=== PATIENT | male | born 1995 | race Caucasian/White ===

== ENCOUNTER → 2016-12-25 | Outpatient (CLI) | payer BC ==
--- OUTSIDE RECORDS SUMMARY | 2016-12-25 11:12 | XMS REPORT | Continuity of Care Document ---
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 Procedure History: . RIGHT RESECTION OF AVULSION FRACTURE WITH ANKLE ARTHROTOMY in 2012 at 17 Years. tubes in ears in 1995 at 18 Months. Social History . Current Tobacco Usage: Current Recreational Drug Use Recreational Drug Use: Denies Tobacco Use Tobacco Type: Cigarettes Cigarette Use Packs/Day: 0.5 pack per day Physical Examination VS/Measurements Vitals (last 3 within 24 hours) Date/Time Temp BP Pulse RR SAO2 FIO2 10/18 08:32 36.2 119/71 70 16 99 Current Weight: 57.3 kg - 10/18/13 08:32 Current Height: 169.5 cm - 10/18/13 08:32 Current BMI: 19.9 - 10/18/13 08:32 General: Alert and oriented, No acute distress. Eye: Pupils are equal, round and reactive to light, Extraocular movements are intact. HENT: Normocephalic, Tympanic membranes are clear, Oral mucosa is moist, No pharyngeal erythema. Nasal septum deviated to the left causing obstruction of the nasal passageway. Turbinates are enlarged, Left more than right. Neck: Supple, Non-tender, No thyromegaly. Respiratory: Lungs are clear to auscultation, Respirations are non-labored. Cardiovascular: Normal rate, Regular rhythm. Gastrointestinal: Soft, Non-tender, Non-distended, Normal bowel sounds, No organomegaly. Review / Management Laboratory results: . No Lab data found within the last three days. Impression and Plan Diagnosis Hypertrophy of inferior nasal turbinate (ICD9 478.0). Nasal septal deviation (ICD9 470). Risks and benefits of the procedure were discussed with the patient in the office, he would like to proceed. [Electronically Signed on 10.18.2013 09:29 AM]
Tash Russell, DO
</br> 10/18/2013 [Electronically Signed on 10.18.2013 09:29 AM] Tash Russell, DO [facility] PROVIDER REPORT PROVIDER REPORT Anand Adler, Gender: M, : 1995, Encounter Date and Time: 04/30/2014 05: 37PM, Examiner: PRICILLA Majano Chief complaint The Chief Complaint is: 46639 Individual Therapy Session. Assessment - Delayed post-traumatic stress disorder Allergies and Adverse Reactions No Known Allergies. Plan - Psychiatric therapy family (Conjoint) Signoff Information . 04/30/2014 [facility] PROVIDER REPORT PROVIDER REPORT Anand Adler, Gender: M, : 1995, Encounter Date and Time: 09/17/2014 10: 36AM, Examiner: Jovanny Kenny MD Chief complaint The Chief Complaint is: Anand is here today for 2 week Insomnia review. Anand states that Ambien is working well. Anand does say that the Mobic is not helping his Right Ankle pain and is wondering if there is something else he could try. //bnlpn. History of present illness Anand Adler is a 19 year old male. Patient is here for followup on his trial of Ambien. This did work well. He slept well. No hangover effect. Still having right foot pain from his surgery to remove a bone fragment. He has run a host of pain medications without any noticeable benefit, making me think this could be a mechanical problem. Current medication Mobic 7.5 mg tablet take 1 tablet by Oral route 1 time per day Pain. Ambien 5 mg tablet take 1 tablet by Oral route at bedtime 1 time per day Insomnia. Past medical/surgical history Reported: Medical: Previous psychiatric treatment. Surgical / Procedural: Prior surgery ankle surgery took out bone fragment 2012. Diagnoses: Depression Anxiety disorder NOS Personal history Lives with parents. Behavioral: Daily coffee consumption was one cups per day. Alcohol: A social drinker. Education: The highest level of education achieved: 11 years completed. 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 Physical findings Vital Signs: Vital Signs/Measurements Value Date Tympanic membrane temperature 97.6 09/17/2014 RR 20 per min 09/17/2014 AK 96 bpm 09/17/2014 Blood pressure 102/60 mmHg 09/17/2014 Weight 118.6 lbs 09/17/2014 Body mass index 18.6 kg/m2 09/17/2014 Height 67 in 09/17/2014 Standard Measurements: Standard Measurements: Value Date Body surface area 1.6 09/17/2014 General Appearance: - Normal. - Alert. - Well developed. - Well nourished. Head: Appearance: - Head normocephalic. Face: - No facial abnormalities. Neck: Suppleness: - Neck demonstrated no decrease in suppleness. Thyroid: - Showed no abnormalities. Eyes: General/bilateral: Extraocular Movements: - Normal. Pupils: - PERRLA Pupils equal, round, reactive to light and accommodation. External: - Conjunctiva exhibited no abnormalities. Ears: General/bilateral: Outer Ear: - Normal. External Auditory Canal: - External auditory meatus normal. Tympanic Membrane: - Normal. Middle Ear: - Normal. Nose: General/bilateral: Discharge: - No nasal discharge seen. Cavity: - Nasal mucosa normal. Sinus Tenderness: - No sinus tenderness. Oral Cavity: - General condition was good. Teeth: - Dental no abnormalities. Pharynx: - Normal. Lymph Nodes: - Normal. - No adenopathy. Chest: - Normal. Lungs: - Respiration rhythm and depth was normal. - Clear to auscultation. Cardiovascular: Heart Rate And Rhythm: - Normal. Heart Sounds: - Normal. - S1 normal. - S2 did not have physiologic splitting. Murmurs: - No murmurs were heard. Peripheral Vascular Exam: - Normal. Neurological: - System: normal. Skin: - General appearance was normal. - No skin lesions. Assessment - Insomnia - Right foot pain Therapy - Medication List Reconciled. Allergies Reviewed. Allergies and Adverse Reactions No Known Allergies. Plan - Ambien 5 mg tablet. take 1 tablet by Oral route 1 time per day at bedtime for Insomnia. Dispense: 30 Tablet. Refill: 0. RENEWED BY TRISHA CONWAY COntinue Ambien 5. He does understand this is a controlled substance and he will have to call in advance for Rx each time and we will need to print it rather than calling in. Cannot put refills on it either. Setting up referral back to podiatry (Dr. Anderson). - Follow-up for re-examination - PRN Signoff Information . 09/17/2014 [facility] PROVIDER REPORT PROVIDER REPORT Anand Adler, Gender: M, : 1995, Encounter Date and Time: 11/04/2015 02: 34PM, Examiner: JAQUI Jones Chief complaint The Chief Complaint is: Pt states here for knee pain 2 days cmma. History of present illness Anand Adler is a 20 year old male. Pt is being seen for left knee pain that started 2 days after he hit knee into staircase. Pt reports he has iced and elevated and tylenol. Pt advised nurse as he was being roomed his Dog hurt his left knee. Pt's left knee has no swelling, no point tenderness, no erythema or discoloration of any jeremiah. Pt will be given a note stating he was seen today along with informatiobn on rest, ice, compression and elevation. - Knee joint pain on the left. Current medication - trazodone 100 mg tablet. 1 tablet @HS Past medical/surgical history Reported: Medical: Previous psychiatric treatment. Surgical / Procedural: Prior surgery ankle surgery took out bone fragment 2012. Diagnoses: Depression Anxiety disorder NOS Personal history Lives with parents. Behavioral: Daily coffee consumption was one cups per day. Current every day smoker. Alcohol: A social drinker. Education: The highest level of education achieved: 11 years completed. 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 Review of systems Systemic: Not feeling tired or poorly. No fever. Head: No headache and no sinus pain. Neck: No swollen glands in the neck. Otolaryngeal: No hearing loss, no epistaxis, and no sore throat. Cardiovascular: No chest pain or discomfort and no palpitations. Pulmonary: No dyspnea, no orthopnea, and no cough. Gastrointestinal: No heartburn. No nausea, no vomiting, no hematemesis, no abdominal pain, no diarrhea, and no constipation. Genitourinary: No increase in urinary frequency. No dysuria. Physical findings Vital Signs: Vital Signs/Measurements Value Date Tympanic membrane temperature 97.8 11/04/2015 RR 20 per min 11/04/2015 AK 85 bpm 11/04/2015 Blood pressure 104/66 mmHg 11/04/2015 Weight 128.6 lbs 11/04/2015 Body mass index 20.1 kg/m2 11/04/2015 Height 67 in 11/04/2015 Standard Measurements: Standard Measurements: Value Date Body surface area 1.7 11/04/2015 Laboratory Studies: Pulmonary Tests: Value Date Oxygen saturation 98% percent 11/04/2015 General Appearance: - Alert. - Well developed. - In no acute distress. Head: Appearance: - Head showed no temporal wasting. Eyes: General/bilateral: Extraocular Movements: - Normal. Pupils: - Normal. Ears: General/bilateral: Tympanic Membrane: - Normal. Lungs: - Respiration rhythm and depth was normal. Cardiovascular: Heart Rate And Rhythm: - Normal. Musculoskeletal System: General/bilateral: - Musculoskeletal system: normal. Neurological: - Oriented to time, place, and person. Speech: - Normal. Coordination / Cerebellum: - No coordination/cerebellum abnormalities were noted. Gait And Stance: - Normal. Psychiatric: Mood: - Euthymic. Skin: - General appearance was normal. - Showed no erythema. - No skin lesions. Assessment - Left knee joint pain Therapy - Medication List Reconciled. Allergies Reviewed. Allergies and Adverse Reactions No Known Allergies. Practice Management Estab outpatient expanded h AND p - low complexity decisions. Total face to face time was unspecified. Signoff Information . 11/04/2015 [facility] Ambulatory Depart Summary Ambulatory Depart Summary [facility] [address] [place] [address], [address] [place] [id number] PERSON INFORMATION Name ANAND ADLER Age 17 Years 1995 Sex Male Language Nepalese PCP None, Stated Marital Status Single Time Zone Visit Id Visit Reason PRIOR ANKLE FRACTURE/ PAIN Specialty Enc Type [facility] Med Service SPO-Specialist Phys Office Referred by [facility] Discharge Process Discharge Tracking Id Checkout Checkin Acuity Dispo Type Arrival 12/16/2012 8:49 AM Reg Status LOS Address: [address] [place] [address] [place] [address] PHYS DOC NOTES PROVIDER INFORMATION VITALS INFORMATION Height: Weight: 140.21 lbs Temp: 98.2 F Heart Rate: 80 Respiratory: 20 O2 Sat: BP: 110/64 LOCATION INFORMATION Arrival Nurse Unit Room Bed ORDERS INFORMATION Start Time Order Type Status Stop Time Provider 12/16/2012 9:27 AM Follow Up 2 Weeks -Request Patient Care -Request Ordered 12/16 9:27 AM Veronica Stroud DPM 12/16/2012 9:33 AM Office Visit Level 3 New - 95661 Evaluation and Management Completed 12/16/2012 9:33 AM Veronica Struod DPM MEDICAL INFORMATION Allergy Info: NKA HOME MEDICATIONS Ambien 5 mg oral tablet 5 mg, Oral, At bedtime Depakote , Oral, 3 times a day Mobic 15 mg oral tablet 15 mg, Oral, Daily, 30 Day(s), Routed to: [facility]/pharmacy #[id number] Remeron 30 mg oral tablet 30 mg, Oral, At bedtime tramadol 50 mg oral tablet 50 mg, Oral, 3 times a day, 7 Day(s), as needed, for pain, Routed to: [facility]/pharmacy #[id number] DISCHARGE INFORMATION Discharge Disposition: Discharge Location: PATIENT EDUCATION INFORMATION Instructions: Understanding Heel Pain Follow up: With: Address: When: [facility] [address] [address] DescribeMe (1) 12/16/2012 14:30:00 Comments: With: Address: When: Veronica Stroud [address] [place] [address], [address] [place], [place] [id number] DescribeMe (1) 01/05/2013 09:05:00 Comments: DIAGNOSIS Pain, lower extremity 12/16/2012 [facility] Amb Nurs Intake w Hx Event Amb Nurs Intake w Hx Event 02/10/2013 [facility] Level of Functioning Grid-Clinic Level of Functioning Grid-Clinic 02/10/2013 [facility] SMEG-Healthcare Goals 1 SMEG-Healthcare Goals 1 Yes No No No No No No No No No 02/10/2013 [facility] Coding Summary Coding Summary CODING DATE: 11/04/2013 FINAL [facility] STATUS: Home PAYOR: Cody Wren APC DESCRIPTION 0254 Level V ENT Procedures 0254 Level V ENT Procedures 0253 Level IV ENT Procedures ADMIT DX: REASON FOR VISIT DX: 478.0 Hypertrophy of Nasal Turbinates FINAL DX: PRINCIPAL: 470 Deviated Nasal Septum SECONDARY: 478.0 Hypertrophy of Nasal Turbinates 477.9 Allergic Rhinitis, Cause Unspecified PYMT PROC APC STAT DESCRIPTION DOCTOR NAME DATE 21.88 Other Septoplasty Tash Russell DO 2012 21.61 Turbinectomy by Tash Russell DO 2012 Diathermy or Cryosurgery NOTE: The code number assigned matches the documented diagnosis and / or procedure in the patient's chart. However, the narrative phrase printed from the coding software may appear abbreviated, or result in slightly different terminology. Revised Coded By: Saida Lemus I Revised Date Saved: 11/04/2013 04:32 am 11/04/2013 [facility] Surgery Documentation Surgery Documentation [facility] Preop Nursing Record Summary Primary Physician: Tash Russell DO Finalized Date/Time: 10/18/13 09:46:22 Pt. Name: ANAND ADLER/Sex: 1995 Male Med Rec #: [id number] Physician: Financial #: [id number] Pt. Type: S Room/Bed: 05030/01 Admit/Disch: 10/18/13 08:18:00 - Institution: [facility] Preop Case Times Entry 1 Patient in 10/18/13 08:17:00 Patient in preop 10/18/13 08:27:00 Garment Sorter Area Initial Assessment 10/18/13 08:27:00 Anesthesia 10/18/13 08:45:00 by Nurse Evaluation Requested Patient out of Preop 10/18/13 09:46:00 Last Modified By: Michelle Hays RN 10/18/13 09:46:11 Finalized By: Michelle Hays RN Document Signatures Signed By: Michelle Hays RN 10/18/13 09:46 10/18/2013 [facility] Surgery Documentation Surgery Documentation [facility] Postop Nursing Record Summary Primary Physician: Tash Russell DO Finalized Date/Time: 10/18/13 13:39:44 Pt. Name: ANAND ADLER MIKEY Marquez./Sex: 1995 Male Med Rec #: [id number] Physician: Financial #: [id number] Pt. Type: S Room/Bed: [address] [place] [address] Admit/Disch: 10/18/13 08:18:00 - Institution: [facility] Postop Times Entry 1 Patient Time In 10/18/13 10:45:00 Patient Time Out 10/18/13 12:46:00 PACU Phase II Patient Out of 10/18/13 12:46:00 Perioperative Area Finalized By: Radha Ardon RN Document Signatures Signed By: Radha Ardon RN 10/18/13 13:39 10/18/2013 [facility] Ambulatory Depart Summary Ambulatory Depart Summary [facility] [address] [place] [address] [address] [place] [address] PERSON INFORMATION Name ANAND ADLER ALECIABURKE Age 18 Years 1995 12:00 AM Sex Male Language Nepalese PCP Jovanny Kenny MD Marital Status Single Time Zone Visit Id Visit Reason 1 MO NASAL DEVIATION F/U Specialty Enc Type [facility] Med Service SPO-Specialist Phys Office Referred by [facility] Discharge Process Discharge Tracking Id Checkout Checkin Acuity Dispo Type Arrival 08/10/2013 3:10 PM Reg Status LOS Address: [address] [place] [address] PHYS DOC NOTES PROVIDER INFORMATION VITALS INFORMATION Height: 5ft 7.0in Weight: 135.36 lbs Temp: 98.6 F Heart Rate: 94 Respiratory: 18 O2 Sat: BP: 118/78 LOCATION INFORMATION Arrival Nurse Unit Room Bed ORDERS INFORMATION Start Time Order Type Status Stop Time Provider 08/10/2013 3:31 PM Office Visit Level 4 Est - 16082 Evaluation and Management Completed 08/10/2013 3:31 PM Tash Russell DO MEDICAL INFORMATION Allergy Info: NKA HOME MEDICATIONS Astelin 137 mcg/inh nasal spray 2 [place], Nasal, 2 times a day, 30 Day(s), 2 Refills, Routed to: [facility] [address] Depakote 500 mg oral delayed release tablet 500 mg, Oral, 2 times a day, 30 Day(s), 11 Refills Indication: Depression Flonase 50 mcg/inh nasal spray 2 [place], Nasal, Every 24 hours, 11 Refills Lunesta , Oral, At bedtime, at bedtime Remeron 45 mg oral tablet 45 mg, Oral, At bedtime, 30 Day(s) DISCHARGE INFORMATION Discharge Disposition: Discharge Location: PATIENT EDUCATION INFORMATION Instructions: ALLERGIC RHINITIS; Preparing for Outpatient Surgery; Preparing for Endoscopic Sinus Surgery; Endoscopic Sinus Surgery Follow up: With: Address: When: Tash Russell [address] [place] [address], [facility] [address] [place], [place] [phone] Business (1) 11/02/2013 13:00:00 Comments: With: Address: When: [facility] [address] [place] [address] [address] [place] [address] Business (1) 08/24/2013 09:00:00 Comments: REMOVAL SPLINTS With: Address: When: [facility] [address] [place] [address] Business (1) 10/18/2013 00:00:00 Comments: [facility] WILL CALL THE DAY PRIOR TO SURGERY TO GIVE INSTRUCTIONS AND ARRIVAL TIME. NOTHING OT EAT OR DRINK AFTER MIDNIGHT. AVOID BLOOD THINNERS 7-10 DAYS PRIOR. DIAGNOSIS Allergic Rhinitis; Nasal Turbinate Hypertrophy; Nasal septal deviation 08/10/2013 [facility] Ambulatory Depart Summary Ambulatory Depart Summary [facility] [address] [facility], [facility] [place] [phone] PERSON INFORMATION Name ANAND ADLER Age 18 Years 1995 Sex Male Language Nepalese PCP Jovanny Kenny MD Marital Status Single Time Zone Visit Id Visit Reason POST OF STUTURE REMOVAL Specialty Enc Type [facility] Med Service SPO-Specialist Phys Office Referred by [facility] Discharge Process Discharge Tracking Id Checkout Checkin Acuity Dispo Type Arrival 04/11/2013 8:27 AM Reg Status LOS Address: [address] [facility] [address] PHYS DOC NOTES PROVIDER INFORMATION VITALS INFORMATION Height: 5ft 6.9in Weight: 140.21 lbs Temp: 98.6 F Heart Rate: 80 Respiratory: 18 O2 Sat: BP: 110/74 LOCATION INFORMATION Arrival Nurse Unit Room Bed 04/11/2013 8:33 AM ORDERS INFORMATION Start Time Order Type Status Stop Time Provider 04/11/2013 9:04 AM Follow Up 4 Weeks -Request Patient Care -Request Completed 09/2013 9:06 AM Veronica Stroud DPM MEDICAL INFORMATION Allergy Info: NKA HOME MEDICATIONS Ambien 5 mg oral tablet 5 mg, Oral, At bedtime, 30 Day(s), Called to Porfirio campa at [facility]. Indication: Insomnia Depakote 500 mg oral delayed release tablet 500 mg, Oral, 2 times a day, 30 Day(s), 11 Refills Indication: Depression Mobic 15 mg oral tablet 15 mg, Oral, Daily, 30 Day(s) Remeron 45 mg oral tablet 45 mg, Oral, At bedtime, 30 Day(s) DISCHARGE INFORMATION Discharge Disposition: Discharge Location: PATIENT EDUCATION INFORMATION Instructions: Follow up: With: Address: When: Veronica Stroud [address] [place] [address], [facility] [place] [address] Business (1) 05/24/2013 11:05:00 Comments: DIAGNOSIS Follow-up after other surgery; Pain, lower extremity 04/11/2013 [facility] Ambulatory Depart Summary Ambulatory Depart Summary [facility] [address] [facility] [address] [place] [phone] PERSON INFORMATION Name ANAND ADLER Age 18 Years 1995 Sex Male Language Nepalese PCP Jovanny Kenny MD Marital Status Single Time Zone N [id number] Visit Id Visit Reason PT/BROKEN NOSE SEVERAL YEARS AGO/TROUBLE BREATHING Specialty Enc Type [facility] Med Service SPO-Specialist Phys Office Referred by [facility] Discharge Process Discharge Tracking Id Checkout Checkin Acuity Dispo Type Arrival 07/11/2013 3:18 PM Reg Status LOS Address: [address] [facility] [address] PHYS DOC NOTES PROVIDER INFORMATION VITALS INFORMATION Height: 5ft 7.0in Weight: 135.36 lbs Temp: 97.9 F Heart Rate: 74 Respiratory: 18 O2 Sat: BP: 112/72 LOCATION INFORMATION Arrival Nurse Unit Room Bed ORDERS INFORMATION Start Time Order Type Status Stop Time Provider 07/11/2013 3:53 PM Office Visit Level 3 [facility] - [address] Evaluation and Management Completed 07/11/2013 3:53 PM Tash Russell DO 07/11/2013 3:53 PM Follow Up 1 Month -Request Patient Care -Request Ordered 07/11 3:53 PM Tash Russell DO 07/11/2013 3:53 PM Nasal Endoscopy, Diagnostic -Clinic Patient Care -Clinic Completed 07/11/2013 3:53 PM Tash Russell DO MEDICAL INFORMATION Allergy Info: NKA HOME MEDICATIONS Ambien 5 mg oral tablet 5 mg, Oral, At bedtime Depakote 500 mg oral delayed release tablet 500 mg, Oral, 2 times a day, 30 Day(s), 11 Refills Indication: Depression Flonase 50 mcg/inh nasal spray 2 [place], Nasal, Every 24 hours, 11 Refills, Routed to: [facility] [address] Remeron 45 mg oral tablet 45 mg, Oral, At bedtime, 30 Day(s) DISCHARGE INFORMATION Discharge Disposition: Discharge Location: PATIENT EDUCATION INFORMATION Instructions: ALLERGIC RHINITIS; Nasal Surgery: Turbinate Surgery; Nasal Surgery: Septoplasty Follow up: DIAGNOSIS History of closed fracture of nasal bones; Nasal Pain; AR (Allergic Rhinitis); Nasal septal deviation; Hypertrophy of Nasal Turbinates 07/11/2013 [facility] Ambulatory Depart Summary Ambulatory Depart Summary [facility] Depart Summary PERSON INFORMATION Name ANAND ADLER Age 18 Years 1995 12:00 AM Sex Male Language Nepalese PCP Jovanny Kenny MD Marital Status Single Time Zone [facility] [id number] Visit Id Visit Reason Allergic Rhinitis; Fatigue; Runny Nose; Sore Throat; est/fatigue/ sore throat/congestion/runny nose Specialty Enc Type [facility] Med [facility] Referred by [facility] Tracking Grou Discharge 03/10/2014 4:30 PM Tracking Id [id number] Checkout 03/10/2014 4:30 PM Checkin 03/10/2014 2:06 PM Acuity Dispo Type Home Arrival 03/10/2014 2:06 PM Reg Status LOS 000 02:24 Address: [id number] [place] [address] DOC NOTES DEPART REASON INCOMPLETE INFORMATION PROVIDER INFORMATION Provider Role Assigned Unassigned Jacquelin Veliz APRN HURG Provider 03/10/2014 3:07 PM VITALS INFORMATION Vital Sign Triage Latest Pain Intensity Respiratory Rate Blood Pressure / 80 mmHg / 80 mmHg LOCATION INFORMATION Arrival Nurse Unit Room Bed 03/10/2014 2:06 PM HURG-HURG WR 03/10/2014 3:07 PM HURG-HURG 2 1 03/10/2014 4:30 PM HURG-HURG Checkout ORDERS INFORMATION Start Time Order Type Status Stop Time Provider 03/10/2014 3:37 PM Office Visit Level 3 Est - 71663 Evaluation and Management Completed 03/10/2014 3:37 PM Jacquelin Veliz APRN MEDICAL INFORMATION Allergy Info: NKA Prescriptions Given Prescription Display colistin/HC/neomycin/thonzonium otic (Cortisporin-TC otic suspension) 5 Drop(s) , TID, , 10 mL, 03/15/14, Acute, 03/10/14 15:37:35, 0 Number of Refills, 0, Route to Pharmacy Electronically, [facility]/pharmacy# [id number], [id number] fluticasone nasal (Flonase 50 mcg/inh nasal spray) 1 [place], Q24H, NASAL, 1 EA, Maintenance, 03/10/14 16:21:50, 0 Number of Refills, 0, Route to Pharmacy Electronically, [facility]/pharmacy #[id number], [id number] methylprednisolone (Medrol Dosepak 4 mg oral tablet) See Instructions, 1 Pkt, , as directed on package labeling with food, 0 Number of Refills, 0, Instructions Replace Required Details Route to Pharmacy Electronically, [facility]/ pharmacy #[id number], [id number] DISCHARGE INFORMATION Discharge Disposition: Home Discharge Location: Home PATIENT EDUCATION INFORMATION Instructions: ALLERGIC RHINITIS Follow up: With: Address: When: Jovanny Kenny [address] [place], [place] [id number] DescribeMe () Within 5 to 7 days Comments: DIAGNOSIS 03/10/2014 [facility] Urgent Care Note Urgent Care Note Patient: ANAND ADLER Age: 18 years Sex: Male : 1995 Associated Diagnoses: None Author: Jacquelin Veliz, [employer] Basic Information Vital signs: First ED Vitals (03/10/14 15:08) Temp BP Pulse RR SAO2 O2 Flow Rate MAP 36.4 122/80 79 20 98 -- Most Recent Vitals (as of 03/10/14 15:08) Temp BP Pulse RR SAO2 O2 Flow Rate MAP 36.4 122/80 79 20 98 -- Vitals Range (03/10/14 15:08) Temp BP Pulse RR SAO2 O2 Flow Rate MAP 36.4 122 79 20 98 -- -- 80 , Oxygen saturation: Oxygen Therapy & Oxygenation Information 03/10/2014 15:08 Oxygen Saturation 98 % , Measurements 03/10/2014 15:08 Weight 55 kg . Allergies: Allergic Reactions (Selected) NKA. Notes: . History of Present Illness The patient is a 18 years old Male who presents with a complaint of nasal drainage and dry, scratchy throat, sneezing, itchy eyes. Duration lasting 3 day (s). The course is constant. Drainage: clear. The degree of severity is moderate. The mitigating factor is negative. Prior episodes: allergy. The risk factor is negative. Associated Symptoms Constitutional symptoms: fatigue, no chills, no sweats. Fever: Negative. Headache: Negative Neurologic symptoms: Negative Eye symptoms: itchy eyes, no purulent d/c Ear: Within normal limits bilateral. Throat: Pain Respiratory symptoms: Wheezing, pt states he was wheezing a couple days ago, has since resolved, no shortness of breath, no cough. Gastrointestinal symptoms: no nausea no vomiting, no diarrhea. Skin symptoms: No rash, Review of Systems Cardiovascular symptoms: Negative. Genitourinary symptoms: Negative Musculoskeletal symptoms: no Muscle pain, no Joint pain. Lymphatic symptoms: Negative Other significant review of systems All other systems reviewed and otherwise negative Past Medical/ Family/ Social History Medical history: Reviewed as documented in chart. Surgical history: Reviewed as documented in chart. Family history: Reviewed as documented in chart. Social history: Reviewed as documented in chart. Problem list: Per nurse's notes. Physical Examination General appearance: No acute distress. Skin: Warm. Dry. No rash.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 500 mg, 2 times a day Remeron 45 mg oral tablet (mirtazapine), 45 mg, At bedtime Problems and Past Medical History Active ADHD: Onset on 11/01/2002. Anxiety With Depression: Onset on 2006. Delayed union of fracture of ankle Dressing change or removal, surgical wound Follow-up after other surgery Insomnia, Unspecified: Onset on 2009. Pain, lower extremity Post-Op Pain Family History Endocrine/Metabolic Past Med Hx Diabetes Medical History: Father Family Status Father: Living Mother: Living Paternal Grandfather: Paternal Grandmother: Maternal Grandfather: Maternal Grandmother: Brother 1: Living Gastrointestinal Past Medical Hx Heartburn Medical History: Father, Grandparents Hematologic Past Medical History Hematologic, Other Medical History: Grandparents, blood disorder Musculoskeletal Past Medical Hx Back Pain Medical History: Mother Ocular Past Medical History Cataract Medical History: Grandparents Ocular, Other Medical History: Grandparents, macular generation Oncologic Past Medical History Oncologic, Other Medical History: Grandparents, bone cancer Psychiatric Past Medical History Anxiety Medical History: Mother, Father Psychiatric, Other Medical History: Grandparents, bipolar Respiratory Past Medical History COPD Medical History: Grandparents Family Status Reviewed With Patient: Review complete Procedure History tubes in ears at 11/01/1995. RIGHT RESECTION OF AVULSION FRACTURE WITH ANKLE ARTHROTOMY at 03/23/2013. Social History Current Tobacco Usage: Current Smoking Status: Smokes daily Physical Examination TEMP BP Pulse RR MAP O2 Sat 36.6 112/72 74 18 85.33 Blood Pressure Location: Left arm Oxygen Therapy: Room air Weight Height BMI BSA 61.4 kg (135.36 lbs) Scale: Standing digital Constitutional: General appearance. The patient is well, in no apparent distress. Communication: Hearing appears to be normal. Speech: Appears to be normal. Voice quality is normal. Head/Face: Inspection is normal with no evidence of trauma. Palpation of the face is normal with no instability of the bony structures. Facial strength and symmetry is normal during rest as well as activity. Eyes: Extraocular movements are intact and smooth. No nystagmus. Ears: A) Pinna: Right is normal. Left is normal. B) Exterior canals: Right is clear. Left is clear. C) Tympanic membrane: Right is mobile and clear. Left is mobile and clear. Nose: A) External nose: 1. Skin: Normal with no signs of lesions. 2. Bony pyramid is midline without convexity or concavity. 3. Nasal tip is midline. B) Internal: 1. Nasal septum is moderately deviated to the left side , it does obstruct most of the nasal cavity on the left. 2. Turbinates are pale and congested, left much more than the right. 3. Polyps are absent. 4. Epistaxis is absent. 5. Nasal secretions are clear but thick. Sinuses: Nontender to percussion. Oral Cavity: A) Lips: No lesions. B) Dentition: Healthy. C) Gums: Healthy. D) Buccal mucosa: Healthy. E) Floor of mouth: Without lesions. F) Tongue: Without lesions, fully mobile, well papillated. G) Hard palate: No lesions, no clefting. H) Mucosa is moist. Stensen's duct is healthy without lesions. Washburn' s duct is healthy. Oropharynx: Tonsils are 1+/4 bilaterally and symmetric without lesions. Soft palate is within normal limits in the midline and elevates symmetrically. The uvula is not hypertrophied and not clefted. The oropharynx is otherwise without lesions. Salivary Glands: A) Parotid: Normal without mass. B) Submandibular gland: Normal without mass. Neck: A) Thyroid: Normal, smooth without lesions. B) Lymph nodes: Nonenlarged, no masses. C) Trachea midline. Lymph Nodes: Normal without masses. Respiratory: Respiratory effort is normal. Cardiovascular: Normal sinus rhythm. Peripheral vasculature is normal and well perfused. Neurologic: Cranial nerves 2-12 are intact without deficits. Psychiatric: Mood and affect are normal. Orientation to time, place and person are all normal. Skin otherwise is without lesions. Impression 1. Nasal septal deviation (470) 2. AR (Allergic Rhinitis) (477.9) 3. 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 History of closed fracture of nasal bones (V15.51) 5. Nasal Pain (478.19) Plan Medication changes this visit: New Flonase 50 mcg/inh nasal spray, 2 [place], Q24H, Quantity: 1, Refills: 11 Orders this visit: Nasal Endoscopy, Diagnostic -Clinic Follow Up 1 Month -Request Patient will be started on Flonase to help with his congestion and allergic drainage. We did discuss the potential of needing surgery to straighten up the septum and shrink down the turbinates. 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 He will return in 1 month for reevaluation of his nasal cavity and pharynx. He will call with questions or problems before that. He was given directions on how to use the Flonase. TR: [id number] MONO#: [id number] [Electronically Signed on 07.17.2013 08:23 AM]
Tash Russell,
</br> 07/11/2013 [Electronically Signed on 07.17.2013 08:23 AM] Tash Russell DO [facility] Ambulatory Depart Summary Ambulatory Depart Summary [facility] [address], [place] [phone] PERSON INFORMATION Name ANAND ADLER Age 17 Years 1995 Sex Male Language Nepalese PCP None, Stated Marital Status Single Time Zone Visit Id Visit Reason PRIOR ANKLE FRACTURE/ PAIN Specialty Enc Type [facility] Med Service SPO-Specialist Phys Office Referred by [facility] Discharge Process Discharge Tracking Id Checkout Checkin Acuity Dispo Type Arrival 12/16/2012 8:49 AM Reg Status LOS Address: [address] [place] [address] [place] [address] PHYS DOC NOTES PROVIDER INFORMATION VITALS INFORMATION Height: Weight: 140.21 lbs Temp: 98.2 F Heart Rate: 80 Respiratory: 20 O2 Sat: BP: 110/64 LOCATION INFORMATION Arrival Nurse Unit Room Bed ORDERS INFORMATION Start Time Order Type Status Stop Time Provider 12/16/2012 9:27 AM Follow Up 2 Weeks -Request Patient Care -Request Ordered 12/16 9:27 AM Veronica Stroud DPM MEDICAL INFORMATION Allergy Info: NKA HOME MEDICATIONS Ambien 5 mg oral tablet 5 mg, Oral, At bedtime Depakote , Oral, 3 times a day Mobic 15 mg oral tablet 15 mg, Oral, Daily, 30 Day(s), Routed to: [id number] Remeron 30 mg oral tablet 30 mg, Oral, At bedtime tramadol 50 mg oral tablet 50 mg, Oral, 3 times a day, 7 Day(s), as needed, for pain, Routed to: [id number] DISCHARGE INFORMATION Discharge Disposition: Discharge Location: PATIENT EDUCATION INFORMATION Instructions: Understanding Heel Pain Follow up: DIAGNOSIS Pain, lower extremity 12/16/2012 [facility] Office/Clinic Notes Office/Clinic Notes [facility] [address] [place] [address], [place] [id number] PATIENT: ANAND ADLER MR #: [id number] : 1995 DATE SEEN: 02/07/2013 Chief Complaint Patient is here today to follow up on right foot. History of Present Illness The patient is seen today for follow up of right ankle pain. The patient injured that ankle last year. Since that time frame, he has had sharp pain in the ankle, worse with activity, better with rest. Treatment options with immobilization have helped some but the pain still reoccurs. Here today to discuss options related to a painful right ankle. He locates the pain in the medial portion of the right ankle around the medial malleolus. Review of Systems Pertinent negative for the following system(s): Constitutional, Cardiovascular, Musculoskeletal, Neurological, Hematologic Allergies NKA Current Medications Ambien 5 mg oral tablet (zolpidem), 5 mg, At bedtime Depakote (divalproex sodium), 3 times a day Mobic 15 mg oral tablet (meloxicam), 15 mg, Daily Remeron 30 mg oral tablet (mirtazapine), 30 mg, At bedtime Social History Current Tobacco Usage: Denies Physical Examination TEMP BP Pulse RR MAP O2 Sat 36.8 120/76 62 17 90.67 92 Weight Height BMI BSA 61.3 kg (135.14 lbs) Alert and oriented x3, in no apparent distress. Vascular: DP/PT pulses intact. Dermatological: No open lesions. Mild swelling over the medial portion of the right ankle. Neurological: Negative Babinski sign. Musculoskeletal: All muscle groups are 5/5 bilateral. Right ankle, there is pain with palpation in the medial portion of the medial malleolus. Mild pain with eversion of the ankle. Impression 1. Avulsion fracture, right medial malleolus / Delayed union of fracture of ankle (824.8) 2. Pain in limb / lower extremity (729.5) Plan Medication changes this visit: New Lortab 5/500 oral tablet, 1 Tab, Q8H, 10 Day(s), Quantity: 30, Refills: 0 Orders this visit: Follow Up 6 Weeks -Request Today, we talked about continuing the immobilization potentially with the bone stimulator with antiinflammatory medicine, icing and limitation of activity. He would like to potentially proceed with surgery to remove the fragmented bone that is present. We talked about the risks, benefits and options of the procedure. We explained the risks of surgery include but are not limited to chronic pain, chronic numbness, need for a secondary procedure, inadequate correction of the deformity, loss of limb or life, DVT (deep vein thrombosis), pulmonary emboli, potentially ankle joint arthrosis. He does understand this. We explained there may still be recurrent pain after the procedure. He has good comprehension of all aspects of surgery. Our plan is to then perform the surgery in the near future at his convenience. In the interim, he can discontinue the walking boot and crutches. We dispensed a prescription for Lortab 5/500, 1 pill every 6 hours for pain today and we are going to see him back preoperatively. TR: KIRSTIE MONO#: [id number] [Electronically Signed on 02.13.2013 02:23 PM]
Veronica Stroud DPM
</br> 02/07/2013 [Electronically Signed on 02.13.2013 02:23 PM] Veronica Stroud DPM [facility] Office/Clinic Notes Office/Clinic Notes Patient: ANAND ADLER Age: 19 years Sex: Male : [birth year] Associated Diagnoses: None Author: Nita Dominguez Visit Information Visit type: New symptom. Accompanied by: No one. Source of history: Self. Chief Complaint Patient states that he is here today for right ankle pain , to talk about insomnia , and bipolar Review of Systems Constitutional: Negative. Eye: Negative. Ear/Nose/Mouth/Throat: Negative. Respiratory: Negative. Cardiovascular: Negative. Gastrointestinal: Negative. Genitourinary: Negative. Hematology/Lymphatics: Negative. Endocrine: Negative. Immunologic: Negative. Musculoskeletal: Negative. Integumentary: Negative. Neurologic: Negative, Migraines . Psychiatric: Depression. Health Status Allergies: Allergic Reactions (Selected) NKA Current medications: (Selected) Prescriptions Prescribed Astelin 137 mcg/inh nasal spray: 2 [place], NASAL, BID, 1 EA Depakote 500 mg oral delayed release tablet: 1 Tab, PO, BID, 60 Tab Flonase 50 mcg/inh nasal spray: 1 [place], NASAL, Q24H, 1 EA Flonase 50 mcg/inh nasal spray: 2 [place], NASAL, Q24H, 1 EA [place] 7.5 mg-325 mg oral tablet: 1-2 tabs, PO, Q6H, 30 Tab Remeron 45 mg oral tablet: 1 Tab, PO, AT BEDTIME, 30 Tab Documented Medications Documented Ambien 5 mg oral tablet: 1 Tab, PO, AT BEDTIME Celexa: PO, Q24H Lunesta: PO, AT BEDTIME, at bedtime Problem list: Medical (Selected) ADHD / ICD-9-CM 314.01 / Confirmed Delayed union of fracture of ankle / ICD-9-CM 824.8 / Confirmed Dressing change or removal, surgical wound / ICD-9-CM V58.31 / Confirmed Follow-up after other surgery / ICD-9-CM V67.09 / Confirmed Pain, lower extremity / ICD-9-CM 729.5 / Confirmed Post-Op Pain / ICD-9-CM 338.18 / Confirmed Histories Past Medical History: Active Anxiety With Depression (300.4): Onset in 2006 at 12 years. Family History: ADHD (attention deficit hyperactivity disorder).. Father (Leonardo) Anxiety Mother (Heather) Bipolar Sister/Brother (Deon) DM (diabetes mellitus) type I controlled with renal manifestation Father (Leonardo) Depression.. Mother (Heather) Leukemia.. Grandparent (Kristine, ) Procedure History: SEPTOPLASTY, TURBINATE REDUCTION, SUBMUCOSAL RESECTION OF INFERIOR TURBINATE on 10/18/2013 at 18 Years. RIGHT RESECTION OF AVULSION FRACTURE WITH ANKLE ARTHROTOMY on 03/23/2013 at 17 Years. tubes in ears on 11/01/1995 at 18 Months. Social History Alcohol Use Alcohol Use: Denies Caffeine Use Caffeine Use: Current Caffeine Type: Coffee Caffeine Frequency: Daily Current Tobacco Usage: Current Education: College Exposure to Tobacco Smoke: Patient smokes Recreational Drug Use Recreational Drug Use: Denies Smoking Status: Smokes daily Occupation: single / NO Children . Physical Examination VS/Measurements Vitals View 10/09/14 15:10 Height 169.5 cm Weight 53.6 kg Scale Balance BSA 1.5886 m2 Body Mass Index 18.7 kg/m2 Temperature Tympanic 37.0 DegC Peripheral Pulse Rate 85 bpm Respiratory Rate 14 br/min Systolic Blood Pressure 120 mmHg Diastolic Blood Pressure 78 mmHg Mean Arterial Pressure. 92 mmHg Blood Pressure Type Manual Blood Pressure Location Left arm Oxygen Therapy Room air Oxygen Saturation 99 % , Measurements from flowsheet : Measurements 10/09/14 15:10 Height 169.5 cm Weight 53.6 kg Scale Balance BSA 1.5886 m2 Body Mass Index 18.7 kg/m2 10/09/2014 [facility] Amb Nurs Intake w Hx Event Amb Nurs Intake w Hx Event 12/16/2012 [facility] Level of Functioning Grid-Clinic Level of Functioning Grid-Clinic 12/16/2012 [facility] Ambulatory Depart Summary Ambulatory Depart Summary [facility] [address], [address] [place] [phone] PERSON INFORMATION Name ANAND ADLER Age 17 Years 1995 Sex Male Language Nepalese PCP Jovanny Kenny MD Marital Status Single Time Zone Visit Id Visit Reason H&P Specialty Enc Type [facility] Med Service SPO-Specialist Phys Office Referred by [facility] Discharge Process Discharge Tracking Id Checkout Checkin Acuity Dispo Type Arrival 03/22/2013 1:25 PM Reg Status LOS Address: [address] [place] [address] [place] [address] PHYS DOC NOTES PROVIDER INFORMATION VITALS INFORMATION Height: 5ft 6.6in Weight: 141.10 lbs Temp: 98.6 F Heart Rate: 97 Respiratory: 18 O2 Sat: 100 BP: 116/70 LOCATION INFORMATION Arrival Nurse Unit Room Bed 03/22/2013 1:33 PM ORDERS INFORMATION Start Time Order Type Status Stop Time Provider 03/22/2013 1:44 PM Follow Up 1 Week- Request Patient Care -Request Ordered 2012 1:44 PM Veronica Stroud DPM MEDICAL INFORMATION Allergy Info: NKA HOME MEDICATIONS Ambien 5 mg oral tablet 5 mg, Oral, At bedtime, 30 Day(s), Called to [facility] pharmacist at [facility]. Indication: Insomnia Depakote 500 mg oral delayed release tablet 500 mg, Oral, 2 times a day, 30 Day(s), 11 Refills Indication: Depression Mobic 15 mg oral tablet 15 mg, Oral, Daily, 30 Day(s) oxycodone 10 mg oral tablet 10 mg, Oral, Every 4 hours, 10 Day(s), as needed, for Pain, Printed Phenergan 25 mg oral tablet 1, Oral, 3 times a day, 1 Refills, Printed Remeron 45 mg oral tablet 45 mg, Oral, At bedtime, 30 Day(s) DISCHARGE INFORMATION Discharge Disposition: Discharge Location: PATIENT EDUCATION INFORMATION Instructions: CRUTCH WALKING; Be Involved in Your Healthcare: When Youre Having Surgery; Preparing for Outpatient Surgery; Presurgery Checklist; Managing Post- Op Pain at Home: Non-Medication Relief; Medication for Pain; Foot Surgery; Using Crutches: [id number] Follow up: With: Address: When: Veronica Stroud [address] [place] [phone] Business (1) 03/30/2013 08:20:00 Comments: DIAGNOSIS Delayed union of fracture of ankle; Pain, lower extremity 03/22/2013 [facility] Ambulatory Depart Summary Ambulatory Depart Summary [facility] [address] [place] [phone] PERSON INFORMATION Name ANAND ADLER Age 17 Years 1995 Sex Male Language Nepalese PCP None, Stated Marital Status Single Time Zone Visit Id Visit Reason follow up 4 week Specialty Enc Type [facility] Med Service SPO-Specialist Phys Office Referred by [facility] Discharge Process Discharge Tracking Id Checkout Checkin Acuity Dispo Type Arrival 02/07/2013 4:18 PM Reg Status LOS Address: [address] [place] [address] [facility] [address] PHYS DOC NOTES PROVIDER INFORMATION VITALS INFORMATION Height: 5ft 8.0in Weight: 135.14 lbs Temp: 98.2 F Heart Rate: 62 Respiratory: 17 O2 Sat: 92 BP: 120/76 LOCATION INFORMATION Arrival Nurse Unit Room Bed ORDERS INFORMATION Start Time Order Type Status Stop Time Provider 02/07/2013 5:08 PM Follow Up 6 Weeks -Request Patient Care -Request Ordered 02/07 5:08 PM Veronica Stroud DPM MEDICAL INFORMATION Allergy Info: NKA HOME MEDICATIONS Ambien 5 mg oral tablet 5 mg, Oral, At bedtime Depakote , Oral, 3 times a day Lortab 5/500 oral tablet 1 Tab, Oral, Every 8 hours, 10 Day(s), Printed Mobic 15 mg oral tablet 15 mg, Oral, Daily, 30 Day(s) Remeron 30 mg oral tablet 30 mg, Oral, At bedtime DISCHARGE INFORMATION Discharge Disposition: Discharge Location: PATIENT EDUCATION INFORMATION Instructions: Follow up: With: Address: When: Veronica Stroud [address] [place] [address], [place] [address] Business (1) 03/22/2013 13:30:00 Comments: DIAGNOSIS Delayed union of fracture of ankle; Pain, lower extremity 02/07/2013 [facility] Urgent Care Note Urgent Care Note Patient: ANAND ADLER Age: 17 years Sex: Male : [birth year] Associated Diagnoses: None Author: Jovanny Mayorga DO Basic Information Additional information: . Chief Complaint: sore throat, trouble breathing, nasal drainage, headaches, fatigue x 5 days History of Present Illness Patient presents with 5 day history of sore throat, nasal drainage and occasional headaches. Decreased energy. No measured fevers. Has used no medications to treat. No sick contacts are known. No abdominal pain. Father is present. No other concerns. Review of Systems Constitutional symptoms: No fever, no chills, no sweats, no weakness, no fatigue. Skin symptoms: No rash, no breakdown. Eye symptoms: No recent vision problems, ENMT symptoms: Sore throat, nasal congestion, No ear pain, Respiratory symptoms: Cough, no shortness of breath, no orthopnea, no sputum production, no stridor, no wheezing. Cardiovascular symptoms: No chest pain, no peripheral edema. Gastrointestinal symptoms: No abdominal pain, no nausea, no vomiting, no diarrhea, no constipation. Genitourinary symptoms: No dysuria, no hematuria, no discharge. Musculoskeletal symptoms: No back pain, no Muscle pain, no Joint painReports: no decreased range of motion. Neurologic symptoms: Headache, no dizziness, no altered level of consciousness. Endocrine symptoms: No polyuria, no polydipsia. Hematologic/Lymphatic symptoms: Bruising tendency negative, no petechiae. Allergy/immunologic symptoms: No seasonal allergies, no impaired immunity. Health Status Allergies: . Allergic Reactions (Selected) NKA Medications: . Prescription / Home Medications: Ambien 5 mg oral tablet 5 mg, Oral, At bedtime Depakote , Oral, 3 times a day Mobic 15 mg oral tablet 15 mg, Oral, Daily, 30 Day(s) Remeron 30 mg oral tablet 30 mg, Oral, At bedtime Past Medical/ Family/ Social History Surgical history: Surgical history. tubes in ears in 1995 at 18 Months. Physical Examination Vital Signs . Dt/Tm Temp BP Pulse RR SAO2 O2 MAP 12/26 15:19 37 110/85 91 18 98 - - Oxygen Saturation. 12/26/12 15:19 Oxygen Saturation 98 % . Dt/Tm Temp BP Pulse RR SAO2 O2 MAP 12/26 15:19 37 110/85 91 18 98 - - General: Alert, no acute distress. Skin: Warm, dry, intact, no rash, normal for ethnicity. Head: Normocephalic, atraumatic. Neck: Supple, trachea midline, (+) cervial adenopathy with tenderness. Eye: Pupils are equal, round and reactive to light, extraocular movements are intact, normal conjunctiva, Sclera: Clear. Ears, nose, mouth and throat: Tympanic membranes clear (and without erythema), oral mucosa moist, (+)Phayrngeal erythema, no exudate, +2 tonsil hypertrophy. , External ear: Bilateral, normal, Tooth: teeth intact, No dental trauma. Cardiovascular: Regular rate and rhythm, No murmur, Normal peripheral perfusion. Respiratory: Lungs are clear to auscultation, respirations are non-labored, breath sounds are equal. Back: Nontender. Musculoskeletal: Normal ROM, normal strength, no tenderness, no swelling. Chest wall Gastrointestinal: Soft, Nontender, Non distended, No organomegaly, Bowel sounds : Normal. Genitourinary Neurological: Alert and oriented to person, place, time, and situation, No focal neurological deficit observed, normal sensory observed, normal motor observed, normal speech observed. Psychiatric: Cooperative, appropriate mood & affect. Medical Decision Making Documents reviewed: Nursing notes reviewed today. . Electrocardiogram: . No EKG documents found. . Results review: strep screen positive. Impression and Plan Strep Throat (ICD9 034.0, Working, Medical) Plan Condition: Stable. Disposition: Discharged: to home. Prescriptions: Orders, Evaluation and Management: Office Visit Level 3 New - 58077 (Completed): 12/26/12 15:46Orders. Pharmacy: penicillin V potassium 500 mg oral tablet (Ordered): 1 Tab, PO, BID, 20 Tab Counseled: Patient, Family, Regarding diagnosis, Regarding diagnostic results, Regarding treatment plan, Regarding prescription, Patient indicated understanding of instructions, Take Pen V as prescribed. No school until on Pen V for 24 hours. Ibuprofen 600mg every 6 hours prn pain/fever. Throat lozenges as needed. Call if questions arise. Increase fluid intake. Call if questions arise. . 12/26/2012 [facility] Amb Ped Nurs Intake Event Amb Ped Nurs Intake Event [facility] Amb Nurs Intake Event Amb Nurs Intake Event 2012 [facility] Ambulatory Depart Summary Ambulatory Depart Summary [facility] [address] [place] [address] [address] [place] [address] PERSON INFORMATION Name ANAND ADLER Age 18 Years 1995 Sex Male Language Nepalese PCP Jovanny Kenny MD Marital Status Single Time Zone Visit Id Visit Reason PT/BROKEN NOSE SEVERAL YEARS AGO/TROUBLE BREATHING Specialty Enc Type [facility] Med Service SPO-Specialist Phys Office Referred by [facility] Discharge Process Discharge Tracking Id Checkout Checkin Acuity Dispo Type Arrival 07/11/2013 3:18 PM Reg Status LOS Address: [address] [place] [id number] PHYS DOC NOTES PROVIDER INFORMATION VITALS INFORMATION Height: 5ft 7.0in Weight: 135.36 lbs Temp: 97.9 F Heart Rate: 74 Respiratory: 18 O2 Sat: BP: 112/72 LOCATION INFORMATION Arrival Nurse Unit Room Bed ORDERS INFORMATION Start Time Order Type Status Stop Time Provider 07/11/2013 3:53 PM Office Visit Level 3 New - 71564 Evaluation and Management Completed 07/11/2013 3:53 PM Tash Russell DO 07/11/2013 3:53 PM Follow Up 1 Month -Request Patient Care -Request Completed 08/2013 3:58 PM Tash Russell DO 07/11/2013 3:53 PM Nasal Endoscopy, Diagnostic -Clinic Patient Care -Clinic Completed 07/11/2013 3:53 PM Tash Russell DO MEDICAL INFORMATION Allergy Info: NKA HOME MEDICATIONS Ambien 5 mg oral tablet 5 mg, Oral, At bedtime Depakote 500 mg oral delayed release tablet 500 mg, Oral, 2 times a day, 30 Day(s), 11 Refills Indication: Depression Flonase 50 mcg/inh nasal spray 2 [place], Nasal, Every 24 hours, 11 Refills, Routed to: [facility] [address] Remeron 45 mg oral tablet 45 mg, Oral, At bedtime, 30 Day(s) DISCHARGE INFORMATION Discharge Disposition: Discharge Location: PATIENT EDUCATION INFORMATION Instructions: ALLERGIC RHINITIS; Nasal Surgery: Turbinate Surgery; Nasal Surgery: Septoplasty Follow up: With: Address: When: Tash Russell [address] [facility], [address] [place] [address] Business (1) 08/10/2013 15:15:00 Comments: DIAGNOSIS History of closed fracture of nasal bones; Nasal Pain; AR (Allergic Rhinitis); Nasal septal deviation; Hypertrophy of Nasal Turbinates 07/11/2013 [facility] Office/Clinic Notes Office/Clinic Notes [facility] [facility], [place] [id number] PATIENT: ANAND ADLER MR #: [id number] : 1995 DATE SEEN: 03/24/2013 Chief Complaint Patient is here today with concerns of pain. Patient had right foot surgery . History of Present Illness Anand is a pleasant male who is here status post 24 hours right foot surgery by Dr. Stroud. Patient rates pain right now 06/10. Patient is currently nonweightbearing, crutches and cam walker boot. Patient says the dressing may be on too tight. Patient is currently taking oxycodone and Phenergan, but he does not take the Phenergan very consistently, but he does take the oxycodone every 3-4 hours. Patient currently denies any fever, chills, nausea or vomiting. Pain is all in the right foot. Pain Assessment Cognitive Status: Independent, decisions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
--- NOTE | 2016-12-25 15:40 | Diagnostic Imaging Report ---
INDICATION: History of shoulder dislocation bilaterally. COMPARISON: No previous for comparison. FINDINGS: Bilateral: Humeral head is in normal articulation with the glenoid fossa. Articulating surfaces are smooth. No evidence of Hill-Sachs or Bankart deformities. The AC joint is in good alignment. There are no fractures. No soft tissue calcification. IMPRESSION: Normal bilateral shoulder. Dictated by: Dictated on workstation # [id number]
== END ==
LOC: RAD 11:06
PROVIDERS: ATTEND Internal Medicine
DX: M25.511 Pain in right shoulder (principal); M25.512 Pain in left shoulder